=== PATIENT | female | born 1990 | race Caucasian/White ===

== ENCOUNTER 2017-03-24 09:47 | Inpatient (IN) | payer OTHER ==
[~2017-03-24] VITALS: Ht 167.6 cm; Wt 68.9 kg
[~2017-03-24 09:47] MED LIST: ONDA4TAB9 PO; OXYC1TAB24 PO
[2017-03-24] MEDS ORDERED: Lactated Ringer's 1,000 ML IV PRN (11:11)
[2017-03-24] MEDS ORDERED: Oxytocin 10 Unit/mL Inj IM PRN (11:15)
[2017-03-24] MEDS ORDERED: Hemorrhage Kit, Post Partum XX ONE (11:15)
[2017-03-24] MEDS ORDERED: Ondansetron 2 mg/mL 2 mL Inj IVPUSH PRN ×2 (11:15→17:20)
[2017-03-24] MEDS ORDERED: Methylergonovine 0.2 mg/mL Inj IM PRN (11:15)
[2017-03-24] MEDS ORDERED: Sodium Chloride LOK Flush 10 mL Syringe IVFLUSH PRN (11:15)
[2017-03-24] MEDS ORDERED: Carboprost 250 mCg/mL Inj IM PRN (11:15)
[2017-03-24] MEDS ORDERED: Oxytocin 30 Units/500 mL LR 30 UNITS in IV Premix 1 EACH IV PRN ×2 (11:15→23:35)
[2017-03-24] MEDS ORDERED: fentaNYL-PF 50 mCg/mL 2 mL Inj IVPUSH PRN (11:15)
[2017-03-24 11:53] LABS: Mean Corpuscular Volume 78.8 fL (81-100)
--- NOTE | 2017-03-24 17:12 | PCM.HPOB ---
Subjective Date of Service: Mar 24, 2017 Referring Provider: Admitting Physician: Burt Thompson MD Primary Care Physician: Noptimoteo Attending Physician: Laura Martin MD Chief Complaint Contractions History of Present History of Present Illness 26 y at 40w1d [place] 03/23/17 by LMP and consistent with second trimester US. complicated with: 1. Brother with Rashida syndrome. 2. Echogenic intracardiac foci , negative Quad screen. 3. Varicella non-immune. Contraction since last night getting stronger , cervix was closed at 2:00 am , 1.5 cm at 10:00 am, and 3-4 cm/70%/-1 at 17:00. Intact and cephalic. Good movements. No loss of fluid. Blood BP 140/90 at presentation, down to 135's/85's, Preeclampsia labs WNL, Protein creatinine ratio 0.15. Past Medical History Gynecologic History: menarche at age 16, regular menstrual cycles, denies H/o STI or abn pap smears. Medical History: None contributory Surgical History: None Hx Tobacco Use: No Hx Alcohol Use: No Hx Substance Use: No Past Family History Family History Mother: arthritis. Father: arthritis. Brother: rashida FOB: Family H/O Schizophrenia, drug abuse and autism. Review of Systems ROS 10 points ROS is negative except for items in HPI Allergy Coded Allergies: No Known Allergies (Unverified , 01/22/17) Exam Vital Signs 135/74, 71, 16, 37.2, Exam 135 moderate variability, positive accelerations, intermittent variable decelerations. Constitutional: Well-developed HEENT: Atraumatic Lungs: Clear to Auscultation, Clear to Percussion Heart: Regular Rate/Rhythm, Normal S1, Normal S2 Abdomen: Gravid (EFW 7 lb ) Extremities: Pulses Palpable x4 Neurological/Psychiatric: Alert, Oriented X3 Neuro: Grossly Neurologically Intact Labs/Diagnostics Lab/Diagnostic Information Laboratory Tests 72 Hours Test 03/24/17 11:06 03/24/17 12:50 03/24/17 15:10 White Blood Count 21.5th/mm3 (3.8-10.1) Red Blood Count 4.52mil/mm3 (3.90-5.20) Hemoglobin 11.3g/dL (12.0-15.6) Hematocrit 35.6% (35.0-46.0) Mean Corpuscular Volume 78.8fL (81-100) Mean Corpuscular Hemoglobin 25.0pg (27.0-35.0) Mean Corpuscular Hemoglobin Concent 31.7% (32.0-37.0) Red Cell Distribution Width 16.8% (12.3-15.4) Platelet Count 448bil/L (150-400) Hematology Comments Hold Purple Top Tube Received (Received) Blood Urea Nitrogen 14mg/dL (6-20) Creatinine 0.59mg/dL (0.57-1.00) Uric Acid 4.7mg/dL (2.6-7.2) Aspartate Amino Transf (AST/SGOT) 14U/L (0-50) Alanine Aminotransferase (ALT/SGPT) 12U/L (0-32) Urine Random Creatinine 116mg/dL (16-392) Urine Random Total Protein 22mg/dL (0-15) Urine Protein/Creatinine Ratio 0.19 (0-200) Hold Urine Received (Received) Maternal Blood Type: O (Positive ) Antibody Screen: negative Group B Strep Results: Negative () Rubella: Immune Additional Information RPR non-reactive HBsAg Negative HIV negative GC/CT negative Hep C negativ e TSH 1.38 CF negative Toxo negative 1 hr DM screen WNL (92) OB Intrapartum Assessment/Plan Assessment 26 y at 40w1d [facility] 03/23/17 by LMP and consistent with second trimester US. Active labor GBS negative Rubella immune complicated with: 1. Brother with Rashida syndrome. 2. Echogenic intracardiac foci , negative Quad screen. 3. Varicella non-immune. Pain Management: Desires Epidural. Intrapartum plan Expectant management Laura Martin MD Mar 24, 2017 17:12
[2017-03-24] MEDS ORDERED: Lactated Ringer's 500 ML IV ONE (17:16)
[2017-03-24] MEDS ORDERED: Atropine 1 mg/10 mL (Code) Syringe IVPUSH PRN (17:20)
[2017-03-24] MEDS ORDERED: EPHEDrine Sulfate 50 mg/mL Inj IVPUSH PRN (17:20)
[2017-03-24] MEDS ORDERED: fentaNYL 2 mCg/mL-Bupiv 0.125% 100 ML EPIDURAL SCH (17:20)
[2017-03-24] MEDS: Lactated Ringer's 1,000 ML IV SCH (17:33)
--- NOTE | 2017-03-24 17:49 | PCM.HPANE ---
Patient Data Date of Service: Mar 24, 2017 Surgeon Admitting Provider:Burt Thompson MD Attending Provider:Laura Martin MD Primary Care Physician:Trudy Other Provider:Smiley Han Anesthesia Reason for Visit Term Labor Check TERM LABOR CHECK Ht/WT & BMI Height (Centimeters): 168 Weight (Kilograms): 69 Body Mass Index Allergies Coded Allergies: No Known Allergies (Unverified , 01/22/17) Past Anesthesia History Anesthesia History: Denies:: Abnormal Airway, Anesthesia Reactions, Difficult Intubation, Fam Anesthesia Reaction, Fam Malignant Hypertherm, Malignant Hyperthermia MRSA MRSA: No Medications Hypertension Medication: No Home Meds Incl Beta Avila: No Active Scripts Ondansetron ODT (Zofran ODT)4 Mg Tablet4 Mg PO Q4H PRN For Nausea #60 TABLET Prov:Kendra Buckley MD 01/22/17 oxyCODONE-Acetaminophen 5-325 mg 1 Each Tablet1-2 Tab PO Q6H PRN For Pain #30 TABLET Ref 0 Prov:Kendra Buckley MD 01/22/17 History History of ENT Problems?: No HEENT History: Denies:: Abnormal Airway Cataracts Difficult Intubation Dysphagia Glaucoma Hearing Problem Sinus Problem TMJ Denture Type: None Teeth Condition: Within Normal Limits Hx of Heart Problems?: No Cardiovascular History: Denies:: AICD Abdominal Aortic Aneurism Atrial Fibrillation Cardiac Surgery Chest Pain Congestive Heart Failure Coronary Artery Disease Edema Heart Murmur Hypertension Irregular Heartbeat Pacemaker Peripheral Vascular Rheumatic Fever Thrombophlebitis Valvular Heart Disease Hx of Respiratory Problem?: No Respiratory History: Denies:: Asthma COPD Chest Surgery Cough Dyspnea Emphysema Hemoptysis Oxygen Administration Pneumonia Pulmonary Embolism Tuberculosis Use of C-PAP Machine Use of Inhalers / NEBS Hx Neurologic Problems?: No Hx of GI Problems?: No Hx of Problems?: No Female Hx: Positive for:: Currently Hx Musculoskeletal Problems?: No Hx Surgeries?: No Stop/Bang Risk Assessment Category Category 1A: Patient has history of documented sleep apnea, and HAS NOT received any narcotic, sedative or anesthesia administration during this stay. Category 1B: Patient has history of documented sleep apnea, and HAS received any narcotic , sedative or anesthesia administration during this stay Category 2: Patient has SUSPECTED Obstructive Sleep Apnea, and HAS received any narcotic , sedative or anesthesia administration during this stay. Category 3: Patient has SUSPECTED Obstructive Sleep Apnea and HAS NOT received narcotic, sedative or anesthesia administration during this stay. Category 4: Outpatient in Procedural Areas with known sleep apnea or who screen positive for High Risk via the STOP/BANG questionnaire. Exam Exam General Appearance: Alert, Oriented X3, Cooperative, No Acute Distress HEENT/AIRWAY: MP 1 Lungs: Normal Air Movement Heart: Exam Unremarkable Meds/Labs/Diagnostics Labs Test 03/24/17 11:06 03/24/17 12:50 03/24/17 15:10 White Blood Count 21.5th/mm3 (3.8-10.1) Red Blood Count 4.52mil/mm3 (3.90-5.20) Hemoglobin 11.3g/dL (12.0-15.6) Hematocrit 35.6% (35.0-46.0) Mean Corpuscular Volume 78.8fL (81-100) Mean Corpuscular Hemoglobin 25.0pg (27.0-35.0) Mean Corpuscular Hemoglobin Concent 31.7% (32.0-37.0) Red Cell Distribution Width 16.8% (12.3-15.4) Platelet Count 448bil/L (150-400) Hematology Comments Hold Purple Top Tube Received (Received) Blood Urea Nitrogen 14mg/dL (6-20) Creatinine 0.59mg/dL (0.57-1.00) Uric Acid 4.7mg/dL (2.6-7.2) Aspartate Amino Transf (AST/SGOT) 14U/L (0-50) Alanine Aminotransferase (ALT/SGPT) 12U/L (0-32) Urine Random Creatinine 116mg/dL (16-392) Urine Random Total Protein 22mg/dL (0-15) Urine Protein/Creatinine Ratio 0.19 (0-200) Plan Impression Patient chart reviewed, patient interviewed and anesthestic plan with risks, benefits, and alternatives discussed, and informed consent obtained. NPO per Anesth. Guidelines: Yes ASA Physical Status: ASA2 Mod Systemic Disease Anesthetic Plan: Epidural Bene/Risks/Altern/Consents: Yes HP Complete Prior to Induction: Yes Benjamín Love MD Mar 24, 2017 17:15
[2017-03-24] MEDS ORDERED: Sodium Citrate-Citric Acid 15 mL Solution ONE (21:07)
[2017-03-24 21:37] LABS: BASOPHILS % (AUTO) 0.1 % (0-3); EOSINOPHILS % (AUTO) 0.1 % (0-5); MONOCYTES % (AUTO) 8.3 % (4-12); Mean Corpuscular Hemoglobin 24.8 pg (27.0-35.0); NEUTROPHILS % (AUTO) 79.8 % (40-74); Platelet Count 412 bil/L (150-400)
[2017-03-24] MEDS ORDERED: Lactated Ringer's 1,000 ML IV SCH (23:32)
[2017-03-25] MEDS ORDERED: Lactated Ringer's 1,000 ML IV SCH (07:44)
[2017-03-25] MEDS ORDERED: Oxytocin 10 Unit/mL Inj IM PRN (07:45)
[2017-03-25] MEDS ORDERED: oxyCODONE-Acetamin 5-325 mg Tablet PO PRN (07:45)
[2017-03-25] MEDS ORDERED: Hemorrhage Kit, Post Partum XX ONE (07:45)
[2017-03-25] MEDS ORDERED: Benzocaine (Dermoplast) 20% 60 Gm Spray TOPICAL PRN (07:45)
[2017-03-25] MEDS ORDERED: Oxytocin 30 Units/500 mL LR 30 UNITS in IV Premix 1 EACH IV PRN (07:45)
[2017-03-25] MEDS ORDERED: Witch Hazel-Glycerin Pads TOPICAL PRN (07:45)
[2017-03-25] MEDS ORDERED: Methylergonovine 0.2 mg/mL Inj IM PRN (07:45)
[2017-03-25] MEDS ORDERED: LANOlin HPA 7 Gm Ointment TOPICAL PRN (07:45)
[2017-03-25] MEDS ORDERED: Carboprost 250 mCg/mL Inj IM PRN (07:45)
--- NOTE | 2017-03-25 08:10 | PCM.OBVAG ---
Vaginal Delivery Date of Service Mar 25, 2017 Pre Operative Diagnosis Pre Operative Diagnosis 26 y at 40w1d [facility] 03/23/17 by LMP and consistent with second trimester US. complicated with: 1. Brother with Rashida syndrome. 2. Echogenic intracardiac foci , negative Quad screen. 3. Varicella non-immune. Post Operative Diagnosis Post Operative Diagnosis 26 y now P1 at 40w1d [facility] 03/23/17 by LMP and consistent with second trimester US. complicated with: 1. Brother with Rashida syndrome. 2. Echogenic intracardiac foci , negative Quad screen. 3. Varicella non-immune. Procedure Obstetical Procedure: Normal Spontaneous Vaginal Delivery Log Truck Driver/Continuous Miner Provider and Continuous Miner: MD Consuelo Louis DO, PGY-2 Indication for Procedure Induction: Active labor, Pitocin augmentation, AROM, Progressed normally through labor Findings Obstetrical Findings: [place] (Male), Cord (3 Vessel), Weight (3329 grams), Presentation (OA), 1 minute (6), 5 minutes (9), Placenta ( Intact/Normal), Perineal Laceration (2nd degree) Analgesia/Medications Obstetrical Anesthesia: Epidural Procedure Details Procedure Details Patient is an 26 yo now who presented to Labor and Delivery with increasing contractions and was admitted in active labor. She had AROM at 19:30 on 03/22/17. She desired an epidural and one was placed. She made normal progress through labor and was found to be complete about 05:00. She began pushing. Procedure: A sterile drape was placed under the patient's buttocks and with expulsive efforts, she delivered head over an intact perineum. No nuchal cord. The rest of the body was delivered. The baby was placed on maternal abdomen, skin to skin. Warming and stimulating maneuvers were applied. After a minute, the cord was clamped, and cut. The was delivered at 07:06. The placenta then delivered spontaneously intact at 07:22 with a three vessel cord. Uterus firmed with manual external massage. The perineum was examined and there was a 2nd degree tear which was repaired with 3-0 vicryl in the usual fashion. Sponge and instrument counts were correct x2 at the close of the procedure. The patient and tolerated the procedure well and pt is stable in her room. Post Procedure Plan Post Procedure Plan Continue routine post care. Post delivery Condition: Mom stable Attending Statement I was present for the entire procedure and agree with the above documentation. Consuelo Baez DO Mar 25, 2017 08:10 Burt Thompson MD Apr 03, 2017 10:51
--- NOTE | 2017-03-25 08:24 | PCM.ANEP1 ---
Post Anesthesia PACU Phase 1 Assessment Vital Signs VS per RN Vital Signs Date Time Temp Pulse Resp B/P Pulse Ox O2 Delivery O2 Flow Rate FiO2 03/25/17 05:38 36.3 79 20 123/74 Anesthetic Administered: Epidural Level of Alertness: Awake, talking ALMODOVAR's with Equal Strength: Yes Pain: No Nausea or Vomiting: No CV Function & Hydration Stable: Yes Airway Device: NA Oxygen Delivery: Room Air Lungs: Normal Air Movement PACU Phase 2 Assessment Complications: No Follow up Care: N/A Patient Instructions Provided: N/A Philip Langley MD Mar 25, 2017 08:24
[2017-03-25] MEDS: Sodium Chloride LOK Flush 10 mL Syringe IVFLUSH SCH ×2 (08:30→10:25)
[2017-03-25] MEDS: Lactated Ringer's 1,000 ML IV SCH (09:16)
[2017-03-25] MEDS: Ascorbic Acid 500 mg Tablet PO SCH (17:52)
[2017-03-26 07:31] LABS: Mean Corpuscular Hemoglobin 24.7 pg (27.0-35.0); Mean Corpuscular Volume 80.4 fL (81-100)
[2017-03-26] MEDS: Ascorbic Acid 500 mg Tablet PO SCH (12:15)
--- NOTE | 2017-03-26 13:39 | PCM.DC.OB ---
Obstetrical Discharge Summary Date of Service Mar 26, 2017 Date of hospital admission Mar 24, 2017 at 10:37 Date of Discharge: Mar 26, 2017 Providers Admitting Physician: Xu Gilliland MD Primary Care Physician: Trudy Attending Physician: Burt Thompson MD Diagnosis at Time of Discharge Anemia Problems: Brief History and Physical: Patient is an 26 yo now who presented to Labor and Delivery with increasing contractions and was admitted in active labor. She had AROM at 19:30 on 03/22/17. Pitocin was started for augmentation. She made normal progress through labor and was found to be complete about 05:00. Patient delivered 03/25/17 via under epidural anaesthesia with 2nd degree tear, repaired, see delivery note for details. Findings Obstetrical Findings: (Male), Cord (3 Vessel), Weight (3329 grams), Presentation (OA), 1 minute (6), 5 minutes (9), Placenta ( Intact/Normal), Perineal Laceration (2nd degree) complicated with: 1. Brother with [place] syndrome. 2. Echogenic intracardiac foci , negative Quad screen. 3. Varicella non-immune. Hospital Course: Discharge Day Exam: pain well controlled with oral pain medication, ambulating, tolerating regular diet with no Nause aor vomiting. Lochia is normal. Voiding without difficulty. VS: 115/69, 74, 16, 36.5 (Tmax 37.5) AOX3 Chest: EAE B/L CVS: S1+S1 Abd: Fundus firm, soft, no tenderness. Lext: +1 edema B/L Labs: Laboratory Tests 72 Hours Test 03/24/17 11:06 03/24/17 12:50 03/24/17 15:10 03/24/17 21:25 White Blood Count 21.5th/mm3 (3.8-10.1) 18.9th/mm3 (3.8-10.1) Red Blood Count 4.52mil/mm3 (3.90-5.20) 4.24mil/mm3 (3.90-5.20) Hemoglobin 11.3g/dL (12.0-15.6) 10.5g/dL (12.0-15.6) Hematocrit 35.6% (35.0-46.0) 33.5% (35.0-46.0) Mean Corpuscular Volume 78.8fL (81-100) 79.0fL (81-100) Mean Corpuscular Hemoglobin 25.0pg (27.0-35.0) 24.8pg (27.0-35.0) Mean Corpuscular Hemoglobin Concent 31.7% (32.0-37.0) 31.3% (32.0-37.0) Red Cell Distribution Width 16.8% (12.3-15.4) 16.8% (12.3-15.4) Platelet Count 448bil/L (150-400) 412bil/L (150-400) Hematology Comments Hold Purple Top Tube Received (Received) Blood Urea Nitrogen 14mg/dL (6-20) Creatinine 0.59mg/dL (0.57-1.00) Uric Acid 4.7mg/dL (2.6-7.2) Aspartate Amino Transf (AST/SGOT) 14U/L (0-50) Alanine Aminotransferase (ALT/SGPT) 12U/L (0-32) Urine Random Creatinine 116mg/dL (16-392) Urine Random Total Protein 22mg/dL (0-15) Urine Protein/Creatinine Ratio 0.19 (0-200) Hold Urine Received (Received) Neutrophils (%) (Auto) 79.8% (40-74) Lymphocytes (%) (Auto) 11.2% (14-46) Monocytes (%) (Auto) 8.3% (4-12) Eosinophils (%) (Auto) 0.1% (0-5) Basophils (%) (Auto) 0.1% (0-3) Test 03/26/17 07:05 White Blood Count 22.1th/mm3 (3.8-10.1) Red Blood Count 3.52mil/mm3 (3.90-5.20) Hemoglobin 8.7g/dL (12.0-15.6) Hematocrit 28.3% (35.0-46.0) Mean Corpuscular Volume 80.4fL (81-100) Mean Corpuscular Hemoglobin 24.7pg (27.0-35.0) Mean Corpuscular Hemoglobin Concent 30.7% (32.0-37.0) Red Cell Distribution Width 17.0% (12.3-15.4) Platelet Count 360bil/L (150-400) Maternal Blood Type: O (Positive ) Antibody Screen: negative Group B Strep Results: Negative () Rubella: Immune Additional Information RPR non-reactive HBsAg Negative HIV negative GC/CT negative Hep C negativ e TSH 1.38 CF negative Toxo negative 1 hr DM screen WNL (92) ([Ascorbic Acid]) 500 MG TABLET 500 MG PO BIDWM Prescribed by: XU GILLILAND MD Docusate Sodium (Colace) 100 Mg Capsule 100 MG PO DAILY PRN PRN For Constipation Prescribed by: XU GILLILAND MD Ferrous Sulfate (Feosol) 325 Mg Tablet 325 MG PO BIDWM Prescribed by: XU GILLILAND MD Ibuprofen (Ibuprofen) 600 Mg Tablet 600 MG PO QID PRN PRN For Pain Prescribed by: XU GILLILAND MD oxyCODONE-Acetaminophen 5-325 mg (oxyCODONE-Acetaminophen 5-325 mg) 1 Each Tablet 1-2 TAB PO Q4H PRN PRN For Pain Prescribed by: XU GILLILAND MD Discontinued Medications Ondansetron ODT (Zofran ODT) 4 Mg Tablet 4 MG PO Q4H PRN PRN For Nausea Prescribed by: AI RAMIREZ MD oxyCODONE-Acetaminophen 5-325 mg (oxyCODONE-Acetaminophen 5-325 mg) 1 Each Tablet 1-2 TAB PO Q6H PRN PRN For Pain Prescribed by: AI RAMIREZ MD Disposition Disposition: home. Discharge condition: stable. Diet Discharge Diet: No restrictions Activity Discharge Activity-General: Pelvic Rest for 6 weeks (no sex, no douching and no tampons. ), Balance rest and activity, No lifting >10 pounds for 4-6 weeks Dressing and Incisional Care Hygiene: May shower, Perineal care, Sitz bath, Dermoplast spray, Witch Ernestina pads Follow Up Plan Follow-up Provider (F9): Burt Thompson MD Follow-up appointment: Weeks (2 weeks then in 6 weeks for post visits. ) Call your provider for: Fever or Chills, Shortness of breath, Heavy vaginal bleeding, Heavy bleeding, Epigastric pain, Excessive constipation, Vaginal discomfort, Red painful breasts, Other (headache, change in vision, nausea/ vomiting, leg swelling, pain or change in color. ) Xu Gilliland MD Mar 26, 2017 13:38
--- NOTE | 2017-03-26 13:42 | PCM.DIOB ---
Obstetrical Disch Instruction Dates of Hospitalization Date of Hospital Admission Mar 24, 2017 at 10:37 Providers Admitting Physician: Laura Martin MD Primary Care Physician: Nopcp Attending Physician: Burt Thompson MD Discharge Diagnosis Discharge Diagnosis Normal vaginal delivery. Anemia. Problems: Diet Discharge Diet: No restrictions Activity Discharge Activity-General: Pelvic Rest for 6 weeks (no sex, no douching and no tampons. ), Balance rest and activity, No lifting >10 pounds for 4-6 weeks Dressing and Incisional Care Hygiene: May shower, Perineal care, Sitz bath, Dermoplast spray, Witch Ernestina pads Follow Up Plan Follow-up Provider (F9): Burt Thompson MD Follow-up appointment: Weeks (2 weeks then in 6 weeks for post visits. ) Call your provider for: Fever or Chills, Shortness of breath, Heavy vaginal bleeding, Heavy bleeding, Epigastric pain, Excessive constipation, Vaginal discomfort, Red painful breasts, Other (headache, change in vision, nausea/ vomiting, leg swelling, pain or change in color. ) Laura Martin MD Mar 26, 2017 13:42
[2017-03-26] MEDS ORDERED: IBUP-1827 PO (13:45)
[2017-03-26] MEDS ORDERED: OXYC1TAB24 PO (13:45)
[2017-03-26] MEDS ORDERED: Ascorbic Acid PO (13:45)
[2017-03-26] MEDS ORDERED: DOCU-41 PO (13:45)
[2017-03-26] MEDS ORDERED: FERR-74 PO (13:46)
[2017-03-26 14:02] VITALS: BP 115/69; PULSE 74; RESP 16
== END 2017-03-26 15:03 | disposition home or self-care (01) | DRG 775 ==
LOC: FBCO 09:47 → FBC 10:37
PROVIDERS: ADMIT Obstetrics & Gynecology; ATTEND Obstetrics & Gynecology
PROC: 10907ZC Drainage of Amniotic Fluid, Therapeutic from Products of Conception, Via Natural or Artificial Opening (ICD-10-PCS; 2017-03-24)
PROC: 10E0XZZ Delivery of Products of Conception, External Approach (ICD-10-PCS; principal; 2017-03-25)
PROC: 0KQM0ZZ Repair Perineum Muscle, Open Approach (ICD-10-PCS; 2017-03-25)
DX: O70.1 Second degree perineal laceration during delivery (principal); Z37.0 Single live birth; Z3A.40 40 weeks gestation of pregnancy